=== PATIENT | female | born 1940 | race Hispanic/Latino ===

== ENCOUNTER 2016-11-25 21:34 | Emergency (ER) | payer MEDICARE, BC ==
[2016-11-25 22:25] VITALS: BMI 25.7
[2016-11-25 22:31] VITALS: TEMP 98.1
[2016-11-25] MEDS ORDERED: Morphine 2 mg/ml ISec IM STA (23:01)
--- NOTE | 2016-11-25 23:13 | ED PDOC ---
Arrival/HPI - General Chief Complaint: Finger,Hand,&Wrist Time Seen by Provider: 11/25/16 22:43 Historian: Patient - History of Present Illness Narrative History of Present Illness (Text): 11/25/16 23:10 76 y/o female, pmh including htn/hyperlipidemia, chronically on the aspirin, c/ o lt. hand/wrist pain s/p fall about 2 hours from accidental mechanical fall. Aching pain, pain on the wrist, no numbness or tingling, no difficulty moving the lt. hand 5 digits, no head or neck injury, no other medical or psychological complaints. Past Medical History - Provider Review Nursing Documentation Reviewed: Yes - Cardiac Hx Cardiac Disorders: Yes - Pulmonary Hx Respiratory Disorders: No - Neurological Hx Neurological Disorder: No - HEENT Hx HEENT Disorder: No - Renal Hx Renal Disorder: No - Endocrine/Metabolic Hx Endocrine Disorders: No - Hematological/Oncological Hx Blood Disorders: No - Integumentary Hx Dermatological Disorder: No - Musculoskeletal/Rheumatological Hx Musculoskeletal Disorders: Yes Hx Falls: Yes Hx Fractures: Yes (RIGHT ELBOW AND RIGHT FOOT) - Gastrointestinal Hx Gastrointestinal Disorders: Yes (CONSTIPATION 1-7-14) - Genitourinary/Gynecological Hx Genitourinary Disorders: No (H/O OF SMOKING) - Psychiatric Hx Psychophysiologic Disorder: Yes (INSOMNIA) Hx Depression: No Hx Emotional Abuse: No Hx Physical Abuse: No Hx Substance Use: No - Surgical History Hx Appendectomy: Yes - Suicidal Assessment Feels Threatened In Home Enviroment: No Family/Social History - Physician Review Nursing Documentation Reviewed: Yes Family/Social History: Unknown Family HX Smoking Status: Former Smoker Hx Alcohol Use: No Hx Substance Use: No Allergies/Home Meds Allergies/Adverse Reactions: Allergies No Known Allergies Allergy (Verified 11/25/16 22:25) Home Medications: Home Meds Medication Instructions Recorded Confirmed Alprazolam [Xanax] 1 mg PO HS 04/28/13 11/25/16 Ezetimibe/Simvastatin [Vytorin 1 tab PO DAILY 11/25/16 11/25/16 10-20 mg Tablet] Meloxicam [Mobic] 7.5 mg PO DAILY 11/25/16 11/25/16 traMADol [Ultram] 50 mg PO TID PRN 11/25/16 11/25/16 Review of Systems - Review of Systems Constitutional: absent: Fatigue, Fevers Eyes: absent: Vision Changes ENT: absent: Hearing Changes Respiratory: absent: SOB, Cough Cardiovascular: absent: Chest Pain Gastrointestinal: absent: Abdominal Pain, Nausea, Vomiting Musculoskeletal: Arthralgias. absent: Back Pain, Neck Pain, Myalgias Skin: absent: Rash, Pruritis Neurological: absent: Headache, Dizziness Physical Exam Vital Signs Reviewed: Yes Vital Signs Temp Pulse Resp BP Pulse Ox 11/26/16 01:23 81 18 134/76 98 11/25/16 22:29 98.1 F 70 15 130/70 96 Temperature: Afebrile Blood Pressure: Normal Pulse: Regular Respiratory Rate: Normal Appearance: Positive for: Well-Appearing, Non-Toxic, Comfortable Pain Distress: Moderate Mental Status: Positive for: Alert and Oriented X 3 - Systems Exam Head: Present: Atraumatic, Normocephalic Pupils: Present: PERRL Extroacular Muscles: Present: EOMI Conjunctiva: Present: Normal Mouth: Present: Moist Mucous Membranes Neck: Present: Normal Range of Motion Respiratory/Chest: Present: Clear to Auscultation, Good Air Exchange. No: Respiratory Distress, Accessory Muscle Use Cardiovascular: Present: Regular Rate and Rhythm, Normal S1, S2. No: Murmurs Abdomen: Present: Normal Bowel Sounds. No: Tenderness, Distention, Peritoneal Signs Back: Present: Normal Inspection Upper Extremity: Present: Normal Inspection, Other (Lt. hand/wrist: +ttp on the distal radial and wrist region, skin intact, motor 5/5, no scaphoid region, FROM without limitation, sensation intact, motor 5/5, +radial pulse, capillary refill< 2 seconds, neurovascular intact. ). No: Cyanosis, Edema Lower Extremity: Present: Normal Inspection. No: Edema Neurological: Present: GCS=15, Speech Normal, Motor Func Grossly Intact, Gait Normal, Memory Normal Skin: Present: Warm, Dry, Normal Color. No: Rashes Psychiatric: Present: Alert, Oriented x 3, Normal Insight, Normal Concentration Medical Decision Making ED Course and Treatment: 11/25/16 23:13 -lt. hand/wrist xray -morphine. 11/26/16 01:04 -Xrays show +distal radial fracture with displacement and ulnar styloid fracture. -No hand fracture -Sugartongue splint applied by me with neurovascular intact, sling applied. -Pain well controlled. -Discharge home with sugartongue splint, sling, take tylenol at home for pain as needed, follow up with your own pmd and orthopedic within 2 days, return to the ER for any new or worsening signs or symptoms. - RAD Interpretation Radiology Orders: 11/25/16 23:01 HAND LEFT 3 VIEWS ROUTINE [RAD] Stat WRIST, LEFT 3 VIEWS [RAD] Stat Lt. hand/wrist: fracture of distal radius and ulnar styloid. Plumbing Installer: Radiologist - Medication Orders Current Medication Orders: Discontinued Medications Morphine Sulfate (Morphine) 2 mg IM STAT STA Stop: 11/25/16 23:02 Last Admin: 11/25/16 23:51 Dose: 2 mg - PA / PIGMENT GRINDER / Resident Statement MD/DO has reviewed & agrees with the documentation as recorded. Disposition/Present on Arrival - Present on Arrival Any Indicators Present on Arrival: No History of DVT/PE: No History of Uncontrolled Diabetes: No Urinary Catheter: No History of Decub. Ulcer: No History Surgical Site Infection Following: None - Disposition Have Diagnosis and Disposition been Completed?: Yes Diagnosis: Wrist fracture Disposition: HOME/ ROUTINE Disposition Time: 23:14 Patient Plan: Discharge Condition: IMPROVED Additional Instructions: -Discharge home with sugartongue splint, sling, take tylenol at home for pain as needed, follow up with your own pmd and orthopedic within 2 days, return to the ER for any new or worsening signs or symptoms. Referrals: Greg Rivera MD [Staff Provider] - Follow up with primary Forms: [employer] (Turkish), WORK NOTE
[2016-11-26 01:24] VITALS: BP 134/76; PULSE 81; RESP 18; O2SAT 98
--- NOTE | 2016-11-26 08:37 | RAD ---
PROCEDURE: Left Hand Radiographs. HISTORY: fall COMPARISON: None. FINDINGS: BONES: There is a comminuted minimally displaced fracture of the distal radius and a fracture through the ulnar styloid. JOINTS: Degenerative changes are seen at the base of the thumb SOFT TISSUES: Normal. OTHER FINDINGS: None. IMPRESSION: Fracture of the distal radius and ulnar styloid
== END 2016-11-26 01:40 | disposition home or self-care (01) ==
LOC: ED 21:34
DX: S52.502A Unspecified fracture of the lower end of left radius, initial encounter for closed fracture (principal); S52.612A Displaced fracture of left ulna styloid process, initial encounter for closed fracture; W19.XXXA Unspecified fall, initial encounter; I10 Essential (primary) hypertension; E78.5 Hyperlipidemia, unspecified
CPT/HCPCS: 29125; 73110; 73130; 96372; 99284; J2270